=== PATIENT | female | born 1935 | race Two or more races ===

== ENCOUNTER 2018-09-16 09:35 | Inpatient (IN) | payer MEDICARE, OTHER ==
[2018-09-16] MEDS ORDERED: HYDROmorphONE 1 MG/ML SYG (10:00)
[2018-09-16] MEDS: HYDROmorphONE 1 MG/ML SYG IV (10:03)
[2018-09-16] MEDS: ONDANSETRON 4 MG INJ IV (10:03)
[2018-09-16 10:10] LABS: ADD MAN DIFF? NO
[2018-09-16 10:13] LABS: WHITE BLOOD COUNT 9.2 10^3/ul (4.8-10.8)
[2018-09-16 10:13] LABS: BASOPHIL # 0.1 10^3/ul (0.0-0.1); BASOPHILS % 0.8 % (0.0-2.0); EOSINOPHILS # 0.1 10^3/ul (0.0-0.5); EOSINOPHILS % 1.2 % (0.0-7.0); HEMATOCRIT 33.7 % (37.0-47.0); HEMOGLOBIN 11.1 g/dl (12.0-16.0); LYMPHOCYTES # 1.6 10^3/ul (0.8-2.9); LYMPHOCYTES % 17.1 % (15.0-51.0); MEAN CORPUSCULAR HEMOGLOBIN 29.8 pg (29.0-33.0); MEAN CORPUSCULAR HGB CONC 32.9 g/dl (32.0-37.0); MEAN CORPUSCULAR VOLUME 90.3 fl (82.0-101.0); MEAN PLATELET VOLUME 10.1 fl (7.4-10.4); MONOCYTE # 0.7 10^3/ul (0.3-0.9); MONOCYTES % 7.7 % (0.0-11.0); NEUTROPHIL # 6.7 10^3/ul (1.6-7.5); NEUTROPHILS % 72.7 % (39.0-77.0); PLATELET COUNT 251 10^3/UL (140-415); RED BLOOD COUNT 3.73 10^6/ul (4.20-5.40)
[2018-09-16 10:35] LABS: INR 0.94; PROTIME 12.7 Sec (11.9-14.9)
[2018-09-16 10:36] LABS: ANION GAP 9 (5-13); BLOOD UREA NITROGEN 38 mg/dl (7-20); CALCIUM 9.9 mg/dl (8.4-10.2); CARBON DIOXIDE 25 mmol/L (21-31); CHLORIDE 108 mmol/L (97-110); CREATININE 1.19 mg/dl (0.44-1.00); GLUCOSE 144 mg/dl (70-220); POTASSIUM 4.3 mmol/L (3.5-5.1); SODIUM 142 mmol/L (135-144)
[2018-09-16 10:48] LABS: TROPONIN-I < 0.012 ng/ml (0.000-0.120)
[2018-09-16] MEDS: HYDROmorphONE 0.5 MG/0.5 ML SYG IV (11:55)
[2018-09-16] MEDS ORDERED: NACL 0.9% 3 ML SYG IV (13:00)
[2018-09-16] MEDS ORDERED: ONDANSETRON 4 MG INJ IV (13:00)
[2018-09-16] MEDS ORDERED: DOCUSATE SODIUM 100 MG CAP PO (13:00)
[2018-09-16 14:40] LABS: CREATINE KINASE 166 IU/L (23-200)
[2018-09-16 14:53] LABS: CK INDEX 1.8; CK-MB 2.96 ng/ml (0.0-2.4); TROPONIN-I < 0.012 ng/ml (0.000-0.120)
[2018-09-16] MEDS: GABAPENTIN 300 MG CAP PO ×2 (16:18→20:40)
[2018-09-16] MEDS: morphine 2 MG INJ IV ×2 (16:19→19:37)
[2018-09-16] MEDS ORDERED: HEPARIN 5,000 UNIT/0.5 ML VIAL (20:37)
[2018-09-16] MEDS: DOCUSATE SODIUM 100 MG CAP PO (20:40)
[2018-09-16] MEDS: LUBIPROSTONE 24 MCG CAP PO (20:40)
[2018-09-16] MEDS: FAMOTIDINE 20 MG TAB PO (20:41)
[2018-09-16] MEDS: HEPARIN 5,000 UNIT/1 ML VIAL SC (20:41)
[2018-09-16 21:01] LABS: CREATINE KINASE 262 IU/L (23-200)
[2018-09-16 21:12] LABS: CK INDEX 1.6; CK-MB 4.32 ng/ml (0.0-2.4); TROPONIN-I < 0.012 ng/ml (0.000-0.120)
[2018-09-17] MEDS: morphine 2 MG INJ IV ×4 (02:48→23:50)
[2018-09-17] MEDS: ACETAMINOPHEN 325 MG TAB PO (05:05)
[2018-09-17 05:32] LABS: ADD MAN DIFF? NO
[2018-09-17 05:33] LABS: WHITE BLOOD COUNT 8.8 10^3/ul (4.8-10.8)
[2018-09-17 05:33] LABS: BASOPHILS % 0.5 % (0.0-2.0); EOSINOPHILS % 0.2 % (0.0-7.0); HEMATOCRIT 24.9 % (37.0-47.0); HEMOGLOBIN 8.2 g/dl (12.0-16.0); LYMPHOCYTES # 2.4 10^3/ul (0.8-2.9); LYMPHOCYTES % 27.3 % (15.0-51.0); MEAN CORPUSCULAR HEMOGLOBIN 29.9 pg (29.0-33.0); MEAN CORPUSCULAR HGB CONC 32.9 g/dl (32.0-37.0); MEAN CORPUSCULAR VOLUME 90.9 fl (82.0-101.0); MEAN PLATELET VOLUME 10.4 fl (7.4-10.4); MONOCYTE # 1.2 10^3/ul (0.3-0.9); MONOCYTES % 13.6 % (0.0-11.0); NEUTROPHIL # 5.1 10^3/ul (1.6-7.5); NEUTROPHILS % 57.9 % (39.0-77.0); PLATELET COUNT 237 10^3/UL (140-415); RED BLOOD COUNT 2.74 10^6/ul (4.20-5.40); RED CELL DISTRIBUTION WIDTH 13.3 % (11.5-14.5)
[2018-09-17 06:03] LABS: HEMOGLOBIN A1C 5.8 % (0-5.9)
[2018-09-17 06:29] LABS: ALANINE AMINOTRANSFERASE 23 IU/L (13-69); ALBUMIN 3.2 g/dl (3.3-4.9); ALBUMIN/GLOBULIN RATIO 1.18; ALKALINE PHOSPHATASE 67 IU/L (42-121); ANION GAP 12 (5-13); ASPARTATE AMINO TRANSFERASE 20 IU/L (15-46); BILIRUBIN,INDIRECT 0.7 mg/dl (0-1.1); BILIRUBIN,TOTAL 0.7 mg/dl (0.2-1.3); BLOOD UREA NITROGEN 55 mg/dl (7-20); CALCIUM 8.5 mg/dl (8.4-10.2); CARBON DIOXIDE 23 mmol/L (21-31); CHLORIDE 104 mmol/L (97-110); CHOL/HDL RATIO 4.5 RATIO; CHOLESTEROL 133 mg/dl (100-200); CREATININE 2.81 mg/dl (0.44-1.00); GLUCOSE 128 mg/dl (70-220); HDL CHOLESTEROL 29 mg/dl (33-92); LDL CHOLESTEROL,CALCULATED 73 mg/dl; MAGNESIUM 1.9 mg/dl (1.7-2.5); SODIUM 139 mmol/L (135-144); TOTAL PROTEIN 5.9 g/dl (6.1-8.1); TRIGLYCERIDES 153 mg/dl (0-149)
[2018-09-17] MEDS: SOD CHLORIDE 0.9% 1,000 ML IV (07:20)
[2018-09-17] MEDS: GABAPENTIN 300 MG CAP PO ×3 (08:51→22:00)
[2018-09-17] MEDS: LUBIPROSTONE 24 MCG CAP PO ×2 (08:51→22:09)
[2018-09-17] MEDS: DOCUSATE SODIUM 100 MG CAP PO ×2 (08:51→22:00)
[2018-09-17] MEDS: METOPROLOL 25 MG TAB PO ×2 (08:52→22:03)
[2018-09-17] MEDS: PANTOPRAZOLE (EC) 40 MG TAB PO (08:53)
[2018-09-17] MEDS: POTASSIUM CHLORIDE (SR) 20 MEQ TAB PO (08:54)
[2018-09-17] MEDS ORDERED: CELECOXIB 200 MG CAP PO (09:00)
[2018-09-17] MEDS ORDERED: FUROSEMIDE 40 MG TAB PO (09:00)
[2018-09-17] MEDS: HEPARIN 5,000 UNIT/1 ML VIAL SC ×3 (09:00→21:00)
[2018-09-17] MEDS: SOD CHLORIDE 0.9% 500 ML IV (11:00)
[2018-09-17] MEDS: LACTATED RINGER'S 500 ML IV ×2 (12:45)
[2018-09-17 12:55] LABS: ADD UMIC YES; UR ASCORBIC ACID NEGATIVE (NEGATIVE); UR BACTERIA MODERATE /HPF (NONE SEEN); UR BILIRUBIN (Dip) 1+ mg/dL (NEGATIVE); UR BLOOD (Dip) 1+ mg/dL (NEGATIVE); UR CLARITY CLOUDY (CLEAR); UR COLOR AMBER (YELLOW); UR GLUCOSE (Dip) NEGATIVE (NEGATIVE); UR GRANULAR CAST MODERATE /HPF (NONE SEEN); UR HYALINE CAST FEW /HPF (NONE SEEN); UR KETONES (Dip) NEGATIVE (NEGATIVE); UR LEUKOCYTE ESTERASE (Dip) 2+ Leu/ul (NEGATIVE); UR MUCUS FEW /HPF (NONE SEEN); UR NITRITE (Dip) NEGATIVE (NEGATIVE); UR RBC 70 /HPF (0-5); UR SPECIFIC GRAVITY (Dip) 1.018 (1.003-1.030); UR SQUAMOUS EPITHELIAL CELL FEW /HPF (FEW); UR TOTAL PROTEIN (Dip) NEGATIVE (NEGATIVE); UR UROBILINOGEN (Dip) 1+ mg/dL (NEGATIVE); UR WBC 29 /HPF (0-5)
[2018-09-17 13:35] LABS: ANION GAP 8 (5-13); BLOOD UREA NITROGEN 57 mg/dl (7-20); CALCIUM 8.1 mg/dl (8.4-10.2); CARBON DIOXIDE 24 mmol/L (21-31); CHLORIDE 105 mmol/L (97-110); CREATININE 2.98 mg/dl (0.44-1.00); GLUCOSE 118 mg/dl (70-220); POTASSIUM 4.9 mmol/L (3.5-5.1); SODIUM 137 mmol/L (135-144)
[2018-09-17] MEDS ORDERED: HEPARIN 5,000 UNIT/0.5 ML VIAL ×2 (15:27→19:57)
[2018-09-17] MEDS ORDERED: ATORVASTATIN 10 MG TAB PO (21:00)
[2018-09-17 21:17] LABS: SODIUM,URINE RANDOM 22 mmol/L (30-90)
[2018-09-17] MEDS: FOSFOMYCIN 3 GM PACKET PO (21:59)
[2018-09-17] MEDS: FAMOTIDINE 20 MG TAB PO (22:00)
[2018-09-17] MEDS: ATORVASTATIN 40 MG TAB PO (22:03)
[2018-09-18 02:36] LABS: IMMEDIATE SPIN CROSSMATCH 1 2
[2018-09-18] MEDS: PANTOPRAZOLE (EC) 40 MG TAB PO (05:37)
[2018-09-18] MEDS: SOD CHLORIDE 0.9% 1,000 ML IV ×2 (06:17→19:30)
[2018-09-18] MEDS ORDERED: EPHEDrine SULFATE 50 MG/5 ML SYG (07:00)
[2018-09-18] MEDS: LUBIPROSTONE 24 MCG CAP PO ×2 (09:00→20:12)
[2018-09-18] MEDS: POTASSIUM CHLORIDE (SR) 20 MEQ TAB PO (09:00)
[2018-09-18] MEDS: GABAPENTIN 300 MG CAP PO ×3 (09:00→20:12)
[2018-09-18] MEDS: HEPARIN 5,000 UNIT/1 ML VIAL SC ×2 (09:00→20:19)
[2018-09-18] MEDS: DOCUSATE SODIUM 100 MG CAP PO ×2 (09:00→20:13)
[2018-09-18 10:41] LABS: ADD MAN DIFF? NO
[2018-09-18 10:51] LABS: WHITE BLOOD COUNT 8.5 10^3/ul (4.8-10.8)
[2018-09-18 10:51] LABS: BASOPHILS % 0.2 % (0.0-2.0); EOSINOPHILS # 0.1 10^3/ul (0.0-0.5); EOSINOPHILS % 0.8 % (0.0-7.0); HEMATOCRIT 25.9 % (37.0-47.0); HEMOGLOBIN 8.5 g/dl (12.0-16.0); LYMPHOCYTES # 1.6 10^3/ul (0.8-2.9); LYMPHOCYTES % 18.7 % (15.0-51.0); MEAN CORPUSCULAR HEMOGLOBIN 30.4 pg (29.0-33.0); MEAN CORPUSCULAR HGB CONC 32.8 g/dl (32.0-37.0); MEAN CORPUSCULAR VOLUME 92.5 fl (82.0-101.0); MEAN PLATELET VOLUME 10.3 fl (7.4-10.4); MONOCYTE # 1.3 10^3/ul (0.3-0.9); MONOCYTES % 15.1 % (0.0-11.0); NEUTROPHIL # 5.5 10^3/ul (1.6-7.5); NEUTROPHILS % 64.4 % (39.0-77.0); PLATELET COUNT 150 10^3/UL (140-415); RED CELL DISTRIBUTION WIDTH 13.2 % (11.5-14.5)
[2018-09-18] MEDS: METOPROLOL 25 MG TAB PO ×2 (11:04→20:13)
[2018-09-18 11:16] LABS: ALANINE AMINOTRANSFERASE 21 IU/L (13-69); ALBUMIN 3.1 g/dl (3.3-4.9); ALBUMIN/GLOBULIN RATIO 1.19; ALKALINE PHOSPHATASE 66 IU/L (42-121); ANION GAP 7 (5-13); ASPARTATE AMINO TRANSFERASE 27 IU/L (15-46); BILIRUBIN,INDIRECT 0.9 mg/dl (0-1.1); BILIRUBIN,TOTAL 0.9 mg/dl (0.2-1.3); BLOOD UREA NITROGEN 46 mg/dl (7-20); CALCIUM 8.7 mg/dl (8.4-10.2); CARBON DIOXIDE 26 mmol/L (21-31); CHLORIDE 110 mmol/L (97-110); CREATININE 1.48 mg/dl (0.44-1.00); GLUCOSE 120 mg/dl (70-220); POTASSIUM 4.4 mmol/L (3.5-5.1); SODIUM 143 mmol/L (135-144); TOTAL PROTEIN 5.7 g/dl (6.1-8.1)
[2018-09-18 11:16] LABS: MAGNESIUM 2.1 mg/dl (1.7-2.5)
[2018-09-18] MEDS: morphine 2 MG INJ IV ×2 (11:47→23:45)
[2018-09-18] MEDS ORDERED: ONDANSETRON 4 MG INJ (13:23)
[2018-09-18] MEDS ORDERED: METOCLOPRAMIDE 10 MG INJ (13:23)
[2018-09-18] MEDS ORDERED: PROPOFOL 20 ML (13:23)
[2018-09-18] MEDS ORDERED: FENTAnyl 50 MCG/ML VIAL ×2 (13:23→13:55)
[2018-09-18] MEDS ORDERED: CEFAZOLIN 1 GM INJ (13:23)
[2018-09-18] MEDS ORDERED: DIPHENHYDRAMINE 50 MG INJ IV (13:30)
[2018-09-18] MEDS ORDERED: LABETALOL HCL 20MG INJ IV (13:30)
[2018-09-18] MEDS ORDERED: MEPERIDINE 25 MG INJ IV (13:30)
[2018-09-18] MEDS ORDERED: hydrALAzine 20 MG INJ IV (13:30)
[2018-09-18] MEDS ORDERED: HYDROmorphONE 1 MG/5 ML IV SYRINGE IV ×3 (13:30)
[2018-09-18] MEDS ORDERED: ONDANSETRON 4 MG INJ IV (13:30)
[2018-09-18] MEDS ORDERED: ROPIVACAINE 0.5 % 30 ML VIAL (13:36)
[2018-09-18] MEDS ORDERED: POLYMYXIN/BACITRACIN 1L IRRIG (17:52)
[2018-09-18] MEDS ORDERED: HYDROCODONE/APAP (5/325) TAB PO (19:00)
[2018-09-18] MEDS ORDERED: NACL 0.9% 3 ML SYG IV (19:00)
[2018-09-18] MEDS ORDERED: morphine 4 MG/ML VIAL IV (19:00)
[2018-09-18] MEDS ORDERED: CEFAZOLIN 2 GM/50 ML (PMX) 50 ML IVPB (19:00)
[2018-09-18 19:07] LABS: ADD MAN DIFF? NO
[2018-09-18 19:09] LABS: WHITE BLOOD COUNT 8.1 10^3/ul (4.8-10.8)
[2018-09-18 19:09] LABS: BASOPHILS % 0.2 % (0.0-2.0); EOSINOPHILS % 0.2 % (0.0-7.0); HEMATOCRIT 25.3 % (37.0-47.0); HEMOGLOBIN 8.2 g/dl (12.0-16.0); LYMPHOCYTES # 1.4 10^3/ul (0.8-2.9); LYMPHOCYTES % 17.4 % (15.0-51.0); MEAN CORPUSCULAR HEMOGLOBIN 30.1 pg (29.0-33.0); MEAN CORPUSCULAR HGB CONC 32.4 g/dl (32.0-37.0); MONOCYTE # 1.1 10^3/ul (0.3-0.9); MONOCYTES % 13.2 % (0.0-11.0); NEUTROPHIL # 5.5 10^3/ul (1.6-7.5); NEUTROPHILS % 68.1 % (39.0-77.0); PLATELET COUNT 141 10^3/UL (140-415); RED BLOOD COUNT 2.72 10^6/ul (4.20-5.40); RED CELL DISTRIBUTION WIDTH 13.1 % (11.5-14.5)
[2018-09-18 19:33] LABS: ANION GAP 6 (5-13); BLOOD UREA NITROGEN 37 mg/dl (7-20); CALCIUM 8.5 mg/dl (8.4-10.2); CARBON DIOXIDE 26 mmol/L (21-31); CHLORIDE 110 mmol/L (97-110); CREATININE 1.15 mg/dl (0.44-1.00); GLUCOSE 127 mg/dl (70-220); POTASSIUM 4.3 mmol/L (3.5-5.1); SODIUM 142 mmol/L (135-144)
[2018-09-18] MEDS ORDERED: HEPARIN 5,000 UNIT/0.5 ML VIAL (20:05)
[2018-09-18] MEDS: FAMOTIDINE 20 MG TAB PO (20:12)
[2018-09-18] MEDS: ATORVASTATIN 40 MG TAB PO (20:12)
[2018-09-18] MEDS: morphine 4 MG/ML VIAL IV (23:44)
[2018-09-19] MEDS: SOD CHLORIDE 0.9% 1,000 ML IV ×2 (02:33→04:00)
[2018-09-19] MEDS: HYDROCODONE/APAP (5/325) TAB PO ×3 (02:35→19:09)
[2018-09-19] MEDS: PANTOPRAZOLE (EC) 40 MG TAB PO (05:07)
[2018-09-19] MEDS ORDERED: HEPARIN 5,000 UNIT/0.5 ML VIAL ×2 (08:36→20:20)
[2018-09-19] MEDS: LUBIPROSTONE 24 MCG CAP PO ×2 (08:47→20:58)
[2018-09-19] MEDS: GABAPENTIN 300 MG CAP PO ×3 (08:47→20:59)
[2018-09-19] MEDS: DOCUSATE SODIUM 100 MG CAP PO ×2 (08:47→20:59)
[2018-09-19] MEDS: POTASSIUM CHLORIDE (SR) 20 MEQ TAB PO (08:48)
[2018-09-19] MEDS: METOPROLOL 25 MG TAB PO ×2 (08:50→20:59)
[2018-09-19] MEDS ORDERED: ERGOCALCIFEROL 50,000 UNIT CAP PO (09:00)
[2018-09-19] MEDS ORDERED: ENOXAPARIN 40 MG/0.4 ML SYG SC (09:00)
[2018-09-19] MEDS: HEPARIN 5,000 UNIT/1 ML VIAL SC ×2 (09:20→21:02)
[2018-09-19] MEDS: FAMOTIDINE 20 MG TAB PO (20:59)
[2018-09-19] MEDS: morphine 2 MG INJ IV (20:59)
[2018-09-19] MEDS: ATORVASTATIN 40 MG TAB PO (21:00)
[2018-09-19] MEDS: ZOLPIDEM 5 MG TAB PO (21:00)
[2018-09-20] MEDS: PANTOPRAZOLE (EC) 40 MG TAB PO (05:12)
[2018-09-20 05:37] LABS: ADD MAN DIFF? NO
[2018-09-20 05:46] LABS: BASOPHILS % 0.3 % (0.0-2.0); EOSINOPHILS # 0.3 10^3/ul (0.0-0.5); EOSINOPHILS % 3.8 % (0.0-7.0); HEMATOCRIT 23.2 % (37.0-47.0); HEMOGLOBIN 7.6 g/dl (12.0-16.0); LYMPHOCYTES # 1.5 10^3/ul (0.8-2.9); LYMPHOCYTES % 21.3 % (15.0-51.0); MEAN CORPUSCULAR HEMOGLOBIN 30.6 pg (29.0-33.0); MEAN CORPUSCULAR HGB CONC 32.8 g/dl (32.0-37.0); MEAN CORPUSCULAR VOLUME 93.5 fl (82.0-101.0); MEAN PLATELET VOLUME 10.6 fl (7.4-10.4); MONOCYTE # 0.9 10^3/ul (0.3-0.9); MONOCYTES % 12.7 % (0.0-11.0); NEUTROPHIL # 4.3 10^3/ul (1.6-7.5); PLATELET COUNT 176 10^3/UL (140-415); RED BLOOD COUNT 2.48 10^6/ul (4.20-5.40); RED CELL DISTRIBUTION WIDTH 13.3 % (11.5-14.5)
[2018-09-20 05:57] LABS: ANION GAP 8 (5-13); BLOOD UREA NITROGEN 23 mg/dl (7-20); CALCIUM 8.4 mg/dl (8.4-10.2); CARBON DIOXIDE 25 mmol/L (21-31); CHLORIDE 109 mmol/L (97-110); CREATININE 0.81 mg/dl (0.44-1.00); GLUCOSE 103 mg/dl (70-220); POTASSIUM 4.9 mmol/L (3.5-5.1); SODIUM 142 mmol/L (135-144)
[2018-09-20 06:06] LABS: IRON 15 ug/dl (35-150)
[2018-09-20 06:16] LABS: % IRON SATURATION 7 % SAT (22-52); TOTAL IRON BINDING CAPACITY 221 ug/dl (241-421)
[2018-09-20 06:29] LABS: FERRITIN 85.7 ng/ml (11.1-264.0)
[2018-09-20] MEDS ORDERED: HEPARIN 5,000 UNIT/0.5 ML VIAL ×2 (08:22→21:34)
[2018-09-20] MEDS: [UNRECOGNIZED DRUG - OTHER] XX ×2 (08:30→16:30)
[2018-09-20] MEDS: DOCUSATE SODIUM 100 MG CAP PO ×3 (09:35→21:54)
[2018-09-20] MEDS: METOPROLOL 25 MG TAB PO ×2 (09:35→21:55)
[2018-09-20] MEDS: HYDROCODONE/APAP (5/325) TAB PO ×3 (09:35→22:37)
[2018-09-20] MEDS: LUBIPROSTONE 24 MCG CAP PO ×2 (09:35→21:54)
[2018-09-20] MEDS: POTASSIUM CHLORIDE (SR) 20 MEQ TAB PO (09:35)
[2018-09-20] MEDS: HEPARIN 5,000 UNIT/1 ML VIAL SC ×2 (09:43→21:56)
[2018-09-20] MEDS: GABAPENTIN 300 MG CAP PO ×3 (09:43→21:55)
[2018-09-20] MEDS: POLYETHYLENE GLYCOL 17 GM PACKET PO ×2 (13:21→21:54)
[2018-09-20] MEDS: predniSONE 20 MG TAB PO (13:21)
[2018-09-20] MEDS: ALBUTEROL/IPRATROPIUM (NEB) 3 ML AMP HHN ×3 (15:59→21:14)
[2018-09-20] MEDS: SOD FERRIC GLUC COMPLX 125 MG in SOD CHLORIDE 0.9% 100 ML IVPB (17:20)
[2018-09-20] MEDS: BISACODYL (EC) 5 MG TAB PO (18:04)
[2018-09-20] MEDS: BUDESONIDE (NEB) 0.25 MG/2 ML AMP HHN (20:00)
[2018-09-20] MEDS: FAMOTIDINE 20 MG TAB PO (21:55)
[2018-09-20] MEDS: ATORVASTATIN 40 MG TAB PO (21:55)
[2018-09-20] MEDS: morphine 2 MG INJ IV (23:31)
[2018-09-21] MEDS: [UNRECOGNIZED DRUG - OTHER] XX ×3 (00:30→16:30)
[2018-09-21] MEDS: ALBUTEROL/IPRATROPIUM (NEB) 3 ML AMP HHN ×6 (00:52→20:45)
[2018-09-21] MEDS: morphine 2 MG INJ IV ×2 (04:11→15:03)
[2018-09-21 05:35] LABS: ADD MAN DIFF? NO
[2018-09-21 05:48] LABS: WHITE BLOOD COUNT 7.3 10^3/ul (4.8-10.8)
[2018-09-21 05:48] LABS: HEMATOCRIT 23.6 % (37.0-47.0); HEMOGLOBIN 7.8 g/dl (12.0-16.0); LYMPHOCYTES # 0.8 10^3/ul (0.8-2.9); LYMPHOCYTES % 10.6 % (15.0-51.0); MEAN CORPUSCULAR HGB CONC 33.1 g/dl (32.0-37.0); MEAN CORPUSCULAR VOLUME 90.8 fl (82.0-101.0); MEAN PLATELET VOLUME 10.9 fl (7.4-10.4); MONOCYTE # 0.8 10^3/ul (0.3-0.9); MONOCYTES % 10.5 % (0.0-11.0); NEUTROPHIL # 5.7 10^3/ul (1.6-7.5); NEUTROPHILS % 77.8 % (39.0-77.0); PLATELET COUNT 207 10^3/UL (140-415)
[2018-09-21 06:00] LABS: ANION GAP 7 (5-13); BLOOD UREA NITROGEN 25 mg/dl (7-20); CALCIUM 9.1 mg/dl (8.4-10.2); CARBON DIOXIDE 25 mmol/L (21-31); CHLORIDE 105 mmol/L (97-110); CREATININE 0.83 mg/dl (0.44-1.00); GLUCOSE 149 mg/dl (70-220); POTASSIUM 4.8 mmol/L (3.5-5.1); SODIUM 137 mmol/L (135-144)
[2018-09-21] MEDS: PANTOPRAZOLE (EC) 40 MG TAB PO (06:57)
[2018-09-21] MEDS: BUDESONIDE (NEB) 0.25 MG/2 ML AMP HHN ×2 (08:03→20:48)
[2018-09-21] MEDS ORDERED: HEPARIN 5,000 UNIT/0.5 ML VIAL ×2 (08:40→20:31)
[2018-09-21] MEDS: POTASSIUM CHLORIDE (SR) 20 MEQ TAB PO (09:21)
[2018-09-21] MEDS: predniSONE 20 MG TAB PO (09:21)
[2018-09-21] MEDS: DOCUSATE SODIUM 100 MG CAP PO ×2 (09:21→21:27)
[2018-09-21] MEDS: LUBIPROSTONE 24 MCG CAP PO ×2 (09:21→21:26)
[2018-09-21] MEDS: GABAPENTIN 300 MG CAP PO ×3 (09:21→21:26)
[2018-09-21] MEDS: METOPROLOL 25 MG TAB PO ×2 (09:23→21:27)
[2018-09-21] MEDS: HEPARIN 5,000 UNIT/1 ML VIAL SC ×2 (09:24→21:54)
[2018-09-21] MEDS: NA PHOSPHATE/BIPHOS 133 ML ENEMA PR (15:04)
[2018-09-21] MEDS: SOD CHLORIDE 0.9% 250 ML IV* (16:35)
[2018-09-21] MEDS ORDERED: morphine LIQ (10 MG/5 ML) CUP PO (19:00)
[2018-09-21] MEDS: ATORVASTATIN 40 MG TAB PO (21:26)
[2018-09-21] MEDS: FAMOTIDINE 20 MG TAB PO (21:27)
[2018-09-21] MEDS: SOD FERRIC GLUC COMPLX 125 MG in SOD CHLORIDE 0.9% 100 ML IVPB (21:28)
[2018-09-21] MEDS: FUROSEMIDE 20 MG INJ IV (21:31)
[2018-09-21 23:47] LABS: IMMEDIATE SPIN CROSSMATCH 1 6
[2018-09-22] MEDS: [UNRECOGNIZED DRUG - OTHER] XX ×3 (00:30→16:30)
[2018-09-22] MEDS: ALBUTEROL/IPRATROPIUM (NEB) 3 ML AMP HHN ×6 (01:38→20:19)
[2018-09-22 05:08] LABS: ADD MAN DIFF? NO
[2018-09-22 05:24] LABS: WHITE BLOOD COUNT 9.2 10^3/ul (4.8-10.8)
[2018-09-22 05:24] LABS: BASOPHILS % 0.2 % (0.0-2.0); EOSINOPHILS % 0.2 % (0.0-7.0); HEMATOCRIT 29.7 % (37.0-47.0); LYMPHOCYTES # 1.6 10^3/ul (0.8-2.9); MEAN CORPUSCULAR HEMOGLOBIN 30.1 pg (29.0-33.0); MEAN CORPUSCULAR HGB CONC 33.7 g/dl (32.0-37.0); MEAN CORPUSCULAR VOLUME 89.5 fl (82.0-101.0); MEAN PLATELET VOLUME 10.7 fl (7.4-10.4); MONOCYTE # 1.2 10^3/ul (0.3-0.9); MONOCYTES % 13.3 % (0.0-11.0); NEUTROPHIL # 6.2 10^3/ul (1.6-7.5); NEUTROPHILS % 68.2 % (39.0-77.0); PLATELET COUNT 213 10^3/UL (140-415); RED BLOOD COUNT 3.32 10^6/ul (4.20-5.40); RED CELL DISTRIBUTION WIDTH 13.7 % (11.5-14.5)
[2018-09-22 05:35] LABS: ANION GAP 6 (5-13); BLOOD UREA NITROGEN 26 mg/dl (7-20); CALCIUM 8.7 mg/dl (8.4-10.2); CARBON DIOXIDE 27 mmol/L (21-31); CHLORIDE 107 mmol/L (97-110); CREATININE 0.76 mg/dl (0.44-1.00); GLUCOSE 115 mg/dl (70-220); POTASSIUM 4.4 mmol/L (3.5-5.1); SODIUM 140 mmol/L (135-144)
[2018-09-22 05:40] LABS: INR 0.98; PROTIME 13.1 Sec (11.9-14.9)
[2018-09-22] MEDS: PANTOPRAZOLE (EC) 40 MG TAB PO (06:00)
[2018-09-22] MEDS: BUDESONIDE (NEB) 0.25 MG/2 ML AMP HHN ×2 (08:29→20:30)
[2018-09-22] MEDS: GABAPENTIN 300 MG CAP PO ×3 (08:45→21:49)
[2018-09-22] MEDS: predniSONE 20 MG TAB PO (08:45)
[2018-09-22] MEDS: METOPROLOL 25 MG TAB PO ×2 (08:46→21:55)
[2018-09-22] MEDS: DOCUSATE SODIUM 100 MG CAP PO ×2 (09:00→21:00)
[2018-09-22] MEDS: LUBIPROSTONE 24 MCG CAP PO ×2 (09:00→21:49)
[2018-09-22] MEDS: POTASSIUM CHLORIDE (SR) 20 MEQ TAB PO (09:00)
[2018-09-22] MEDS: POLYETHYLENE GLYCOL 17 GM PACKET PO (09:00)
[2018-09-22] MEDS: HEPARIN 5,000 UNIT/1 ML VIAL SC ×2 (09:00→21:52)
[2018-09-22] MEDS: hydrALAzine 20 MG INJ IV (10:30)
[2018-09-22] MEDS: FUROSEMIDE 20 MG INJ IV (11:55)
[2018-09-22] MEDS: BISACODYL 10 MG SUPP PR (14:07)
[2018-09-22 14:49] LABS: ADD MAN DIFF? NO
[2018-09-22 14:51] LABS: BASOPHILS % 0.1 % (0.0-2.0); HEMATOCRIT 37.4 % (37.0-47.0); HEMOGLOBIN 12.6 g/dl (12.0-16.0); LYMPHOCYTES # 0.6 10^3/ul (0.8-2.9); LYMPHOCYTES % 6.7 % (15.0-51.0); MEAN CORPUSCULAR HEMOGLOBIN 29.9 pg (29.0-33.0); MEAN CORPUSCULAR HGB CONC 33.7 g/dl (32.0-37.0); MEAN CORPUSCULAR VOLUME 88.6 fl (82.0-101.0); MEAN PLATELET VOLUME 10.2 fl (7.4-10.4); MONOCYTE # 0.6 10^3/ul (0.3-0.9); MONOCYTES % 6.5 % (0.0-11.0); NEUTROPHIL # 7.8 10^3/ul (1.6-7.5); PLATELET COUNT 228 10^3/UL (140-415); RED BLOOD COUNT 4.22 10^6/ul (4.20-5.40); RED CELL DISTRIBUTION WIDTH 14.2 % (11.5-14.5)
[2018-09-22 14:51] LABS: WHITE BLOOD COUNT 9.2 10^3/ul (4.8-10.8)
[2018-09-22] MEDS ORDERED: VANCOMYCIN IV PER PHARMACY XX (15:30)
[2018-09-22] MEDS: CEFEPIME 1GM/50 ML (PMX) 50 ML IVPB ×2 (16:18→21:54)
[2018-09-22] MEDS: NA PHOSPHATE/BIPHOS 133 ML ENEMA PR (17:09)
[2018-09-22] MEDS: SOD FERRIC GLUC COMPLX 125 MG in SOD CHLORIDE 0.9% 100 ML IVPB (17:17)
[2018-09-22] MEDS: VANCOMYCIN 1.5 GM in SOD CHLORIDE 0.9% 250 ML IVPB (18:53)
[2018-09-22 19:35] LABS: AADO2 Arterial 38.7 mmHg (7.0-24.0); Allen Test ACCEPTAB; Arterial Base Excess 2.2 mmol/L (-3.0-3); Arterial Blood Gas Oxygen Sat 95.3 mmHG (95.0-100.0); Arterial COHb 0.1 % (0.0-3.0); Arterial Fraction of Oxyhgb 95.1 % (93.0-99.0); Arterial HCO3 24.3 mmol/L (22.0-26.0); Arterial MetHb 0.1 % (0.0-1.5); Arterial pCO2 30.4 mmhg (35-45); MODE ROOM AIR; Site Right Radial
[2018-09-22] MEDS: morphine 2 MG INJ IV (19:59)
[2018-09-22] MEDS ORDERED: HEPARIN 5,000 UNIT/0.5 ML VIAL (21:17)
[2018-09-22] MEDS: ATORVASTATIN 40 MG TAB PO (21:49)
[2018-09-22] MEDS: FAMOTIDINE 20 MG TAB PO (21:49)
[2018-09-22] MEDS: HYDROCODONE/APAP (5/325) TAB PO (21:51)
[2018-09-23] MEDS: morphine 2 MG INJ IV ×2 (00:12→09:52)
[2018-09-23] MEDS: ALBUTEROL/IPRATROPIUM (NEB) 3 ML AMP HHN ×6 (01:26→20:19)
[2018-09-23 05:39] LABS: ADD MAN DIFF? NO
[2018-09-23 05:46] LABS: WHITE BLOOD COUNT 9.6 10^3/ul (4.8-10.8)
[2018-09-23 05:46] LABS: BASOPHILS % 0.3 % (0.0-2.0); EOSINOPHILS # 0.1 10^3/ul (0.0-0.5); EOSINOPHILS % 0.9 % (0.0-7.0); HEMATOCRIT 36.1 % (37.0-47.0); HEMOGLOBIN 11.8 g/dl (12.0-16.0); LYMPHOCYTES # 1.9 10^3/ul (0.8-2.9); LYMPHOCYTES % 19.4 % (15.0-51.0); MEAN CORPUSCULAR HEMOGLOBIN 29.7 pg (29.0-33.0); MEAN CORPUSCULAR HGB CONC 32.7 g/dl (32.0-37.0); MEAN CORPUSCULAR VOLUME 90.9 fl (82.0-101.0); MEAN PLATELET VOLUME 10.4 fl (7.4-10.4); MONOCYTE # 1.3 10^3/ul (0.3-0.9); MONOCYTES % 13.2 % (0.0-11.0); NEUTROPHIL # 6.2 10^3/ul (1.6-7.5); NEUTROPHILS % 64.6 % (39.0-77.0); PLATELET COUNT 240 10^3/UL (140-415); RED BLOOD COUNT 3.97 10^6/ul (4.20-5.40); RED CELL DISTRIBUTION WIDTH 14.4 % (11.5-14.5)
[2018-09-23] MEDS: PANTOPRAZOLE (EC) 40 MG TAB PO (06:04)
[2018-09-23 06:21] LABS: ANION GAP 9 (5-13); BLOOD UREA NITROGEN 34 mg/dl (7-20); CALCIUM 9.1 mg/dl (8.4-10.2); CARBON DIOXIDE 27 mmol/L (21-31); CHLORIDE 106 mmol/L (97-110); CREATININE 0.82 mg/dl (0.44-1.00); GLUCOSE 109 mg/dl (70-220); SODIUM 142 mmol/L (135-144)
[2018-09-23 06:26] LABS: POTASSIUM 4.2 mmol/L (3.5-5.1)
[2018-09-23] MEDS: LINACLOTIDE 145 MCG PO ×2 (07:20→17:25)
[2018-09-23] MEDS: [UNRECOGNIZED DRUG - OTHER] PO ×2 (07:20→17:25)
[2018-09-23] MEDS: BUDESONIDE (NEB) 0.25 MG/2 ML AMP HHN ×2 (09:00→20:19)
[2018-09-23] MEDS: DOCUSATE SODIUM 100 MG CAP PO ×2 (09:00→20:54)
[2018-09-23] MEDS: LUBIPROSTONE 24 MCG CAP PO ×2 (09:00→20:48)
[2018-09-23] MEDS ORDERED: HEPARIN 5,000 UNIT/0.5 ML VIAL ×2 (09:39→20:34)
[2018-09-23] MEDS: CEFEPIME 1GM/50 ML (PMX) 50 ML IVPB ×2 (09:44→20:52)
[2018-09-23] MEDS: predniSONE 20 MG TAB PO (09:46)
[2018-09-23] MEDS: METOPROLOL 25 MG TAB PO ×2 (09:46→20:51)
[2018-09-23] MEDS: POTASSIUM CHLORIDE (SR) 20 MEQ TAB PO (09:47)
[2018-09-23] MEDS: GABAPENTIN 300 MG CAP PO ×3 (09:47→20:52)
[2018-09-23] MEDS: HEPARIN 5,000 UNIT/1 ML VIAL SC ×2 (09:53→20:54)
[2018-09-23] MEDS: POLYETHYLENE GLYCOL 17 GM PACKET PO (13:50)
[2018-09-23 13:54] LABS: OCCULT BLOOD STOOL NEGATIVE (NEGATIVE)
[2018-09-23] MEDS: VANCOMYCIN 1 GM 250 ML IVPB (17:33)
[2018-09-23] MEDS: ATORVASTATIN 40 MG TAB PO (20:52)
[2018-09-23] MEDS: BENAZEPRIL 10 MG TAB PO (20:52)
[2018-09-23] MEDS: FAMOTIDINE 20 MG TAB PO (20:52)
[2018-09-24] MEDS: ALBUTEROL/IPRATROPIUM (NEB) 3 ML AMP HHN ×7 (01:00→21:00)
[2018-09-24 05:28] LABS: ADD MAN DIFF? NO
[2018-09-24 05:36] LABS: WHITE BLOOD COUNT 8.4 10^3/ul (4.8-10.8)
[2018-09-24 05:36] LABS: BASOPHILS % 0.2 % (0.0-2.0); EOSINOPHILS # 0.1 10^3/ul (0.0-0.5); HEMATOCRIT 34.9 % (37.0-47.0); HEMOGLOBIN 11.5 g/dl (12.0-16.0); LYMPHOCYTES # 1.7 10^3/ul (0.8-2.9); LYMPHOCYTES % 19.7 % (15.0-51.0); MEAN CORPUSCULAR HEMOGLOBIN 30.1 pg (29.0-33.0); MEAN CORPUSCULAR VOLUME 91.4 fl (82.0-101.0); MEAN PLATELET VOLUME 10.4 fl (7.4-10.4); MONOCYTES % 11.8 % (0.0-11.0); NEUTROPHIL # 5.5 10^3/ul (1.6-7.5); NEUTROPHILS % 65.7 % (39.0-77.0); PLATELET COUNT 221 10^3/UL (140-415); RED BLOOD COUNT 3.82 10^6/ul (4.20-5.40); RED CELL DISTRIBUTION WIDTH 14.6 % (11.5-14.5)
[2018-09-24] MEDS: PANTOPRAZOLE (EC) 40 MG TAB PO (06:00)
[2018-09-24 06:18] LABS: ANION GAP 8 (5-13); BLOOD UREA NITROGEN 31 mg/dl (7-20); CALCIUM 8.8 mg/dl (8.4-10.2); CARBON DIOXIDE 26 mmol/L (21-31); CHLORIDE 108 mmol/L (97-110); CREATININE 0.75 mg/dl (0.44-1.00); GLUCOSE 109 mg/dl (70-220); POTASSIUM 4.3 mmol/L (3.5-5.1); SODIUM 142 mmol/L (135-144)
[2018-09-24] MEDS ORDERED: ROCURONIUM 50 MG INJ (07:00)
[2018-09-24] MEDS: LINACLOTIDE 145 MCG PO ×2 (07:20→17:25)
[2018-09-24] MEDS: [UNRECOGNIZED DRUG - OTHER] PO ×2 (07:20→17:25)
[2018-09-24] MEDS: HEPARIN 5,000 UNIT/1 ML VIAL SC (09:00)
[2018-09-24] MEDS: POLYETHYLENE GLYCOL 17 GM PACKET PO (09:00)
[2018-09-24] MEDS: GABAPENTIN 300 MG CAP PO ×3 (09:00→21:00)
[2018-09-24] MEDS: predniSONE 20 MG TAB PO (09:00)
[2018-09-24] MEDS: DOCUSATE SODIUM 100 MG CAP PO ×2 (09:00→21:00)
[2018-09-24] MEDS: BUDESONIDE (NEB) 0.25 MG/2 ML AMP HHN ×2 (09:00→20:00)
[2018-09-24] MEDS: POTASSIUM CHLORIDE (SR) 20 MEQ TAB PO (09:00)
[2018-09-24] MEDS: LUBIPROSTONE 24 MCG CAP PO ×2 (09:00→21:00)
[2018-09-24] MEDS: CEFEPIME 1GM/50 ML (PMX) 50 ML IVPB (10:01)
[2018-09-24] MEDS: BENAZEPRIL 10 MG TAB PO ×2 (10:10→21:00)
[2018-09-24] MEDS: METOPROLOL 25 MG TAB PO ×2 (10:12→21:00)
[2018-09-24] MEDS ORDERED: MIDAZOLAM 1 MG/ML 2 ML INJ ×2 (15:54→23:20)
[2018-09-24] MEDS ORDERED: FENTAnyl 50 MCG/ML VIAL ×4 (15:54→23:19)
[2018-09-24] MEDS ORDERED: LIDOCAINE 2% (SDV) 5 ML INJ (15:55)
[2018-09-24] MEDS ORDERED: ETOMIDATE 20 MG INJ (15:55)
[2018-09-24] MEDS ORDERED: ONDANSETRON 4 MG INJ (15:55)
[2018-09-24] MEDS ORDERED: SUCCINYLCHOLINE CHLORIDE 100 MG/5 ML SYG IV (15:56)
[2018-09-24] MEDS ORDERED: CEFAZOLIN 1 GM INJ (15:56)
[2018-09-24] MEDS ORDERED: LEVALBUTEROL (NEB) 1.25 MG/0.5 ML AMP HHN (16:00)
[2018-09-24] MEDS ORDERED: DIPHENHYDRAMINE 50 MG INJ IV (16:00)
[2018-09-24] MEDS ORDERED: ONDANSETRON 4 MG INJ IV (16:00)
[2018-09-24] MEDS ORDERED: FENTAnyl 50 MCG/ML VIAL IV ×2 (16:00)
[2018-09-24] MEDS ORDERED: HYDROmorphONE 1 MG/5 ML IV SYRINGE IV ×2 (16:00)
[2018-09-24] MEDS ORDERED: IPRATROPIUM (NEB) 0.5 MG/2.5 ML AMP HHN (16:00)
[2018-09-24] MEDS ORDERED: LABETALOL HCL 20MG INJ IV (16:00)
[2018-09-24] MEDS ORDERED: hydrALAzine 20 MG INJ IV (16:00)
[2018-09-24] MEDS ORDERED: BUPIVACAINE 0.75%/DEXT (SPINAL) 2 ML INJ (18:22)
[2018-09-24] MEDS ORDERED: HYDROmorphONE 2 MG/ML SYG (18:47)
[2018-09-24] MEDS ORDERED: hydrALAzine 20 MG INJ (18:50)
[2018-09-24] MEDS ORDERED: ALBUMIN HUMAN 5% 500 ML (18:55)
[2018-09-24] MEDS ORDERED: ALBUMIN HUMAN 25% 200 ML (18:55)
[2018-09-24] MEDS ORDERED: METOPROLOL 5 MG INJ (19:50)
[2018-09-24] MEDS: POLYMYXIN/BACITRACIN 1L IRRIG IRR (19:51)
[2018-09-24] MEDS ORDERED: morphine SULFATE/PF (10 MG/10 ML) INJ (20:13)
[2018-09-24] MEDS ORDERED: CA CHLORIDE 10% 10 ML SYRINGE (20:46)
[2018-09-24] MEDS: FAMOTIDINE 20 MG TAB PO (21:00)
[2018-09-24] MEDS: ATORVASTATIN 40 MG TAB PO (21:00)
[2018-09-24] MEDS ORDERED: FUROSEMIDE 20 MG INJ (21:32)
[2018-09-24 21:39] LABS: IMMEDIATE SPIN CROSSMATCH 1 5
[2018-09-24] MEDS ORDERED: NACL 0.9% 3 ML SYG IV (22:00)
[2018-09-24] MEDS ORDERED: PROPOFOL 100 ML (22:04)
[2018-09-24] MEDS ORDERED: NA BICARBONATE 8.4% 50 ML SYG (22:08)
[2018-09-24] MEDS ORDERED: LABETALOL HCL 20MG INJ (23:21)
[2018-09-24] MEDS ORDERED: PHENYLephrine (100 MCG/ML) 5ML SYG (23:25)
[2018-09-25] MEDS ORDERED: NORepinephrine 8MG/250 ML (PMX 250 ML IV
[2018-09-25] MEDS ORDERED: HEPARIN 5,000 UNIT/0.5 ML VIAL ×2 (00:56→20:38)
[2018-09-25] MEDS: VANCOMYCIN 1 GM 250 ML IVPB (00:57)
[2018-09-25] MEDS: ALBUTEROL HFA 8 GM INHALER INH ×3 (01:00→07:40)
[2018-09-25] MEDS: IPRATROPIUM (HFA) 12.9 GM INHALER INH ×3 (01:00→07:39)
[2018-09-25] MEDS: HEPARIN 5,000 UNIT/1 ML VIAL SC ×3 (01:08→22:16)
[2018-09-25 01:26] LABS: ADD MAN DIFF? NO
[2018-09-25 01:29] LABS: WHITE BLOOD COUNT 9.6 10^3/ul (4.8-10.8)
[2018-09-25 01:29] LABS: BASOPHILS % 0.2 % (0.0-2.0); EOSINOPHILS # 0.2 10^3/ul (0.0-0.5); EOSINOPHILS % 2.2 % (0.0-7.0); HEMATOCRIT 26.6 % (37.0-47.0); HEMOGLOBIN 8.9 g/dl (12.0-16.0); LYMPHOCYTES # 1.6 10^3/ul (0.8-2.9); LYMPHOCYTES % 16.6 % (15.0-51.0); MEAN CORPUSCULAR HEMOGLOBIN 30.1 pg (29.0-33.0); MEAN CORPUSCULAR HGB CONC 33.5 g/dl (32.0-37.0); MEAN CORPUSCULAR VOLUME 89.9 fl (82.0-101.0); MEAN PLATELET VOLUME 10.8 fl (7.4-10.4); MONOCYTE # 0.6 10^3/ul (0.3-0.9); MONOCYTES % 6.7 % (0.0-11.0); NEUTROPHILS % 72.9 % (39.0-77.0); PLATELET COUNT 103 10^3/UL (140-415); RED BLOOD COUNT 2.96 10^6/ul (4.20-5.40); RED CELL DISTRIBUTION WIDTH 15.7 % (11.5-14.5)
[2018-09-25 01:33] LABS: AADO2 Arterial 142.7 mmHg (7.0-24.0); Arterial Base Excess -0.2 mmol/L (-3.0-3); Arterial Blood Gas Oxygen Sat 98.7 mmHG (95.0-100.0); Arterial COHb 0.1 % (0.0-3.0); Arterial Fraction of Oxyhgb 98.6 % (93.0-99.0); Arterial HCO3 25.5 mmol/L (22.0-26.0); Arterial MetHb 0 % (0.0-1.5); Arterial pCO2 46.1 mmhg (35-45); MODE VENT - AC; Site A-Line
[2018-09-25 01:55] LABS: ANION GAP 4 (5-13); BLOOD UREA NITROGEN 30 mg/dl (7-20); CALCIUM 10.1 mg/dl (8.4-10.2); CARBON DIOXIDE 28 mmol/L (21-31); CHLORIDE 109 mmol/L (97-110); CREATININE 0.82 mg/dl (0.44-1.00); GLUCOSE 121 mg/dl (70-220); SODIUM 141 mmol/L (135-144)
[2018-09-25] MEDS: CEFAZOLIN 1 GM/50 ML (PMX) 50 ML IVPB ×3 (02:01→22:18)
[2018-09-25] MEDS: PROPOFOL 100 ML IV (02:01)
[2018-09-25] MEDS: CEFEPIME 1GM/50 ML (PMX) 50 ML IVPB ×2 (02:01→09:57)
[2018-09-25 05:01] LABS: ADD MAN DIFF? NO
[2018-09-25 05:04] LABS: BASOPHIL # 0.1 10^3/ul (0.0-0.1); BASOPHILS % 0.5 % (0.0-2.0); EOSINOPHILS # 0.3 10^3/ul (0.0-0.5); EOSINOPHILS % 1.9 % (0.0-7.0); HEMATOCRIT 29.3 % (37.0-47.0); LYMPHOCYTES # 1.7 10^3/ul (0.8-2.9); LYMPHOCYTES % 12.5 % (15.0-51.0); MEAN CORPUSCULAR HGB CONC 34.1 g/dl (32.0-37.0); MEAN PLATELET VOLUME 10.5 fl (7.4-10.4); MONOCYTE # 1.4 10^3/ul (0.3-0.9); MONOCYTES % 10.7 % (0.0-11.0); NEUTROPHIL # 9.6 10^3/ul (1.6-7.5); NEUTROPHILS % 72.7 % (39.0-77.0); PLATELET COUNT 136 10^3/UL (140-415); RED BLOOD COUNT 3.33 10^6/ul (4.20-5.40); RED CELL DISTRIBUTION WIDTH 16.1 % (11.5-14.5)
[2018-09-25 05:04] LABS: WHITE BLOOD COUNT 13.3 10^3/ul (4.8-10.8)
[2018-09-25 05:39] LABS: ANION GAP 6 (5-13); BLOOD UREA NITROGEN 32 mg/dl (7-20); CALCIUM 9.7 mg/dl (8.4-10.2); CARBON DIOXIDE 25 mmol/L (21-31); CHLORIDE 112 mmol/L (97-110); CREATININE 0.86 mg/dl (0.44-1.00); GLUCOSE 111 mg/dl (70-220); MAGNESIUM 1.6 mg/dl (1.7-2.5); POTASSIUM 4.4 mmol/L (3.5-5.1); SODIUM 143 mmol/L (135-144)
[2018-09-25] MEDS: PANTOPRAZOLE 40 MG INJ IV (06:25)
[2018-09-25] MEDS: morphine 2 MG INJ IV ×3 (07:29→12:58)
[2018-09-25] MEDS: [UNRECOGNIZED DRUG - OTHER] PO ×2 (08:14→17:43)
[2018-09-25] MEDS: LINACLOTIDE 145 MCG PO ×2 (08:14→17:43)
[2018-09-25] MEDS: POLYETHYLENE GLYCOL 17 GM PACKET PO (09:00)
[2018-09-25] MEDS: BUDESONIDE (NEB) 0.25 MG/2 ML AMP HHN ×2 (09:00→20:52)
[2018-09-25] MEDS: ENOXAPARIN 40 MG/0.4 ML SYG SC (09:00)
[2018-09-25] MEDS ORDERED: BUDESONIDE (NEB) 0.5MG/2ML AMP (09:40)
[2018-09-25] MEDS: METOPROLOL 25 MG TAB PO ×2 (11:24→21:42)
[2018-09-25] MEDS: HYDROCODONE/APAP (5/325) TAB PO (11:24)
[2018-09-25] MEDS: predniSONE 20 MG TAB PO (11:26)
[2018-09-25] MEDS: LEVOFLOXACIN 500 MG TAB PO (11:26)
[2018-09-25] MEDS: BENAZEPRIL 10 MG TAB PO ×2 (11:27→21:41)
[2018-09-25] MEDS: DOCUSATE SODIUM 100 MG CAP PO ×2 (11:27→21:41)
[2018-09-25] MEDS: GABAPENTIN 300 MG CAP PO ×3 (11:27→21:41)
[2018-09-25] MEDS: LUBIPROSTONE 24 MCG CAP PO ×2 (11:28→21:41)
[2018-09-25] MEDS: POTASSIUM CHLORIDE (SR) 20 MEQ TAB PO (11:28)
[2018-09-25] MEDS: ALBUTEROL/IPRATROPIUM (NEB) 3 ML AMP HHN ×3 (13:16→20:52)
[2018-09-25] MEDS: OXYCODONE/ACETAMINOPHEN (5/325) TAB PO ×2 (16:02→20:13)
[2018-09-25] MEDS: FAMOTIDINE 20 MG TAB PO (21:41)
[2018-09-25] MEDS: ATORVASTATIN 40 MG TAB PO (21:41)
[2018-09-26] MEDS: ALBUTEROL/IPRATROPIUM (NEB) 3 ML AMP HHN ×6 (00:36→21:00)
[2018-09-26] MEDS ORDERED: VANCOMYCIN 1 GM 250 ML IVPB (01:00)
[2018-09-26 05:06] LABS: ADD MAN DIFF? NO
[2018-09-26 05:15] LABS: WHITE BLOOD COUNT 15.8 10^3/ul (4.8-10.8)
[2018-09-26 05:15] LABS: BASOPHILS % 0.1 % (0.0-2.0); EOSINOPHILS % 0.1 % (0.0-7.0); HEMATOCRIT 21.1 % (37.0-47.0); HEMOGLOBIN 7.2 g/dl (12.0-16.0); LYMPHOCYTES # 1.4 10^3/ul (0.8-2.9); LYMPHOCYTES % 8.9 % (15.0-51.0); MEAN CORPUSCULAR HGB CONC 34.1 g/dl (32.0-37.0); MEAN CORPUSCULAR VOLUME 87.9 fl (82.0-101.0); MEAN PLATELET VOLUME 11.1 fl (7.4-10.4); MONOCYTE # 1.4 10^3/ul (0.3-0.9); MONOCYTES % 8.9 % (0.0-11.0); NEUTROPHIL # 12.8 10^3/ul (1.6-7.5); NEUTROPHILS % 80.6 % (39.0-77.0); PLATELET COUNT 127 10^3/UL (140-415)
[2018-09-26] MEDS: LEVOFLOXACIN 250 MG TAB PO (05:49)
[2018-09-26] MEDS: PANTOPRAZOLE (EC) 40 MG TAB PO (05:49)
[2018-09-26] MEDS: OXYCODONE/ACETAMINOPHEN (5/325) TAB PO ×3 (06:09→23:40)
[2018-09-26 06:14] LABS: ANION GAP 7 (5-13); BLOOD UREA NITROGEN 38 mg/dl (7-20); CALCIUM 8.5 mg/dl (8.4-10.2); CARBON DIOXIDE 24 mmol/L (21-31); CHLORIDE 105 mmol/L (97-110); GLUCOSE 136 mg/dl (70-220); MAGNESIUM 1.8 mg/dl (1.7-2.5); SODIUM 136 mmol/L (135-144)
[2018-09-26 06:23] LABS: POTASSIUM 4.6 mmol/L (3.5-5.1)
[2018-09-26] MEDS ORDERED: HEPARIN 5,000 UNIT/0.5 ML VIAL (08:10)
[2018-09-26] MEDS: POTASSIUM CHLORIDE (SR) 20 MEQ TAB PO (08:31)
[2018-09-26] MEDS: DOCUSATE SODIUM 100 MG CAP PO ×2 (08:31→21:00)
[2018-09-26] MEDS: LUBIPROSTONE 24 MCG CAP PO ×2 (08:31→21:15)
[2018-09-26] MEDS: POLYETHYLENE GLYCOL 17 GM PACKET PO (08:31)
[2018-09-26] MEDS: METOPROLOL 25 MG TAB PO ×2 (08:32→21:15)
[2018-09-26] MEDS: BENAZEPRIL 10 MG TAB PO ×2 (08:32→21:15)
[2018-09-26] MEDS: GABAPENTIN 300 MG CAP PO ×3 (08:32→21:15)
[2018-09-26] MEDS: LINACLOTIDE 145 MCG PO ×2 (08:33→17:23)
[2018-09-26] MEDS: [UNRECOGNIZED DRUG - OTHER] PO ×2 (08:33→17:23)
[2018-09-26] MEDS: HEPARIN 5,000 UNIT/1 ML VIAL SC ×2 (08:37→21:00)
[2018-09-26] MEDS: BUDESONIDE (NEB) 0.25 MG/2 ML AMP HHN ×2 (09:00→21:19)
[2018-09-26] MEDS: ATORVASTATIN 40 MG TAB PO (21:15)
[2018-09-26] MEDS: FAMOTIDINE 20 MG TAB PO (21:15)
[2018-09-27] MEDS: ALBUTEROL/IPRATROPIUM (NEB) 3 ML AMP HHN ×6 (01:44→21:22)
[2018-09-27 05:14] LABS: ADD MAN DIFF? NO
[2018-09-27 05:16] LABS: BASOPHILS % 0.2 % (0.0-2.0); EOSINOPHILS # 0.2 10^3/ul (0.0-0.5); EOSINOPHILS % 1.6 % (0.0-7.0); HEMATOCRIT 23.3 % (37.0-47.0); LYMPHOCYTES # 1.9 10^3/ul (0.8-2.9); LYMPHOCYTES % 16.1 % (15.0-51.0); MEAN CORPUSCULAR HGB CONC 34.3 g/dl (32.0-37.0); MEAN CORPUSCULAR VOLUME 90.3 fl (82.0-101.0); MEAN PLATELET VOLUME 11.1 fl (7.4-10.4); MONOCYTE # 1.2 10^3/ul (0.3-0.9); MONOCYTES % 10.3 % (0.0-11.0); NEUTROPHIL # 8.4 10^3/ul (1.6-7.5); NEUTROPHILS % 70.4 % (39.0-77.0); PLATELET COUNT 143 10^3/UL (140-415); RED BLOOD COUNT 2.58 10^6/ul (4.20-5.40)
[2018-09-27 05:16] LABS: WHITE BLOOD COUNT 11.9 10^3/ul (4.8-10.8)
[2018-09-27 05:17] LABS: POSITIVE DIFF @See below
[2018-09-27] MEDS: LEVOFLOXACIN 250 MG TAB PO (05:55)
[2018-09-27] MEDS: PANTOPRAZOLE (EC) 40 MG TAB PO (05:55)
[2018-09-27 06:23] LABS: BLOOD UREA NITROGEN 29 mg/dl (7-20); CALCIUM 8.4 mg/dl (8.4-10.2); CARBON DIOXIDE 26 mmol/L (21-31); CREATININE 0.85 mg/dl (0.44-1.00); GLUCOSE 100 mg/dl (70-220)
[2018-09-27 07:09] LABS: ANION GAP 5 (5-13); CHLORIDE 104 mmol/L (97-110); POTASSIUM 4.3 mmol/L (3.5-5.1); SODIUM 135 mmol/L (135-144)
[2018-09-27] MEDS: DOCUSATE SODIUM 100 MG CAP PO ×2 (09:00→20:03)
[2018-09-27] MEDS: POLYETHYLENE GLYCOL 17 GM PACKET PO (09:00)
[2018-09-27] MEDS: BUDESONIDE (NEB) 0.25 MG/2 ML AMP HHN ×2 (09:00→20:00)
[2018-09-27] MEDS: LUBIPROSTONE 24 MCG CAP PO ×2 (09:00→20:03)
[2018-09-27] MEDS: GABAPENTIN 300 MG CAP PO ×3 (09:13→21:25)
[2018-09-27] MEDS: OXYCODONE/ACETAMINOPHEN (5/325) TAB PO ×3 (09:13→20:15)
[2018-09-27] MEDS: POTASSIUM CHLORIDE (SR) 20 MEQ TAB PO (09:14)
[2018-09-27] MEDS: LINACLOTIDE 145 MCG PO ×2 (09:14→17:54)
[2018-09-27] MEDS: BENAZEPRIL 10 MG TAB PO ×2 (09:14→21:25)
[2018-09-27] MEDS: METOPROLOL 25 MG TAB PO ×2 (09:14→21:25)
[2018-09-27] MEDS: [UNRECOGNIZED DRUG - OTHER] PO ×2 (09:14→17:54)
[2018-09-27 09:27] LABS: ANISOCYTOSIS 1+ (0-0); BAND NEUTROPHILS #M 0.2 10^3/ul (0.0-0.6); BAND NEUTROPHILS % (M) 2 % (0-4); BURR CELLS 1+ (0-0); EOSINOPHILS % (M) 3 % (0-7); LYMPHOCYTES #M 1.1 10^3/ul (0.8-2.9); LYMPHOCYTES % (M) 10 % (15-51); MONOCYTE #M 0.8 10^3/ul (0.3-0.9); MONOCYTES % (M) 7 % (0-11); PLATELET ESTIMATE NORMAL; POLYCHROMASIA 1+ (0-0); REACTIVE LYMPHOCYTES #M 0.4 10^3/ul (0.0-0.0); REACTIVE LYMPHOCYTES% (M) 4 % (0-0); SEG NEUT #M 8.8 10^3/ul (1.6-7.5); SEGMENTED NEUTROPHILS (M) % 74 % (39-77); SMUDGE%M 7 % (0-0)
[2018-09-27] MEDS: HEPARIN 5,000 UNIT/1 ML VIAL SC ×2 (13:53→22:57)
[2018-09-27] MEDS: SOD FERRIC GLUC COMPLX 125 MG in SOD CHLORIDE 0.9% 100 ML IVPB (16:23)
[2018-09-27] MEDS ORDERED: morphine LIQ (10 MG/5 ML) CUP PO (17:00)
[2018-09-27] MEDS: ATORVASTATIN 40 MG TAB PO (21:25)
[2018-09-27] MEDS: FAMOTIDINE 20 MG TAB PO (21:25)
[2018-09-28] MEDS: ALBUTEROL/IPRATROPIUM (NEB) 3 ML AMP HHN ×3 (01:32→10:53)
[2018-09-28 05:21] LABS: WHITE BLOOD COUNT 8.1 10^3/ul (4.8-10.8)
[2018-09-28 05:21] LABS: HEMOGLOBIN 7.6 g/dl (12.0-16.0); MEAN CORPUSCULAR HEMOGLOBIN 30.8 pg (29.0-33.0); MEAN CORPUSCULAR VOLUME 93.1 fl (82.0-101.0); MEAN PLATELET VOLUME 10.6 fl (7.4-10.4); PLATELET COUNT 173 10^3/UL (140-415); RED BLOOD COUNT 2.47 10^6/ul (4.20-5.40); RED CELL DISTRIBUTION WIDTH 16.1 % (11.5-14.5)
[2018-09-28 05:33] LABS: ADD MAN DIFF? YES; POSITIVE DIFF @See below
[2018-09-28 05:35] LABS: ANION GAP 5 (5-13); BLOOD UREA NITROGEN 24 mg/dl (7-20); CALCIUM 8.3 mg/dl (8.4-10.2); CARBON DIOXIDE 26 mmol/L (21-31); CHLORIDE 105 mmol/L (97-110); CREATININE 0.81 mg/dl (0.44-1.00); GLUCOSE 115 mg/dl (70-220); MAGNESIUM 1.9 mg/dl (1.7-2.5); POTASSIUM 4.7 mmol/L (3.5-5.1); SODIUM 136 mmol/L (135-144)
[2018-09-28] MEDS: OXYCODONE/ACETAMINOPHEN (5/325) TAB PO ×6 (05:38→20:25)
[2018-09-28] MEDS: PANTOPRAZOLE (EC) 40 MG TAB PO (05:38)
[2018-09-28] MEDS: LEVOFLOXACIN 250 MG TAB PO (05:38)
[2018-09-28 07:40] LABS: ANISOCYTOSIS 1+ (0-0); BAND NEUTROPHILS #M 0.1 10^3/ul (0.0-0.6); BAND NEUTROPHILS % (M) 2 % (0-4); BASOPHILS % (M) 1 % (0-2); BURR CELLS 1+ (0-0); EOSINOPHILS % (M) 1 % (0-7); ERYTHROBLAST% (NRBC) (M) 1 % (0-0); GIANT THROMBO% (M) 1 % (0-0); HYPOCHROMASIA 1+ (0-0); LYMPHOCYTES #M 1.3 10^3/ul (0.8-2.9); LYMPHOCYTES % (M) 17 % (15-51); MONOCYTE #M 0.7 10^3/ul (0.3-0.9); MONOCYTES % (M) 9 % (0-11); PLATELET ESTIMATE NORMAL; PLATELET MORPHOLOGY COMMENT @See below; POLYCHROMASIA 1+ (0-0); REACTIVE LYMPHOCYTES #M 0.2 10^3/ul (0.0-0.0); REACTIVE LYMPHOCYTES% (M) 3 % (0-0); SEG NEUT #M 5.4 10^3/ul (1.6-7.5); SEGMENTED NEUTROPHILS (M) % 67 % (39-77); SMUDGE%M 4 % (0-0)
[2018-09-28] MEDS: POTASSIUM CHLORIDE (SR) 20 MEQ TAB PO (09:02)
[2018-09-28] MEDS: GABAPENTIN 300 MG CAP PO ×3 (09:02→20:24)
[2018-09-28] MEDS: BENAZEPRIL 10 MG TAB PO ×2 (09:03→20:25)
[2018-09-28] MEDS: DOCUSATE SODIUM 100 MG CAP PO ×2 (09:03→20:25)
[2018-09-28] MEDS: METOPROLOL 25 MG TAB PO ×2 (09:04→20:24)
[2018-09-28] MEDS: LINACLOTIDE 145 MCG PO ×2 (09:04→17:50)
[2018-09-28] MEDS: [UNRECOGNIZED DRUG - OTHER] PO ×2 (09:04→17:50)
[2018-09-28] MEDS: LUBIPROSTONE 24 MCG CAP PO ×2 (09:04→20:24)
[2018-09-28] MEDS: HEPARIN 5,000 UNIT/1 ML VIAL SC (09:06)
[2018-09-28] MEDS: POLYETHYLENE GLYCOL 17 GM PACKET PO (09:07)
[2018-09-28 10:53] LABS: IMMEDIATE SPIN CROSSMATCH 1 1
[2018-09-28] MEDS: BUDESONIDE (NEB) 0.25 MG/2 ML AMP HHN (10:55)
[2018-09-28] MEDS: SOD FERRIC GLUC COMPLX 125 MG in SOD CHLORIDE 0.9% 100 ML IVPB (17:50)
[2018-09-28] MEDS: ATORVASTATIN 40 MG TAB PO (20:25)
[2018-09-28] MEDS: FAMOTIDINE 20 MG TAB PO (20:25)
[2018-09-29] MEDS: ALBUTEROL/IPRATROPIUM (NEB) 3 ML AMP HHN (02:53)
[2018-09-29 05:19] LABS: ADD MAN DIFF? NO
[2018-09-29 05:26] LABS: WHITE BLOOD COUNT 7.7 10^3/ul (4.8-10.8)
[2018-09-29 05:26] LABS: BASOPHILS % 0.4 % (0.0-2.0); EOSINOPHILS # 0.2 10^3/ul (0.0-0.5); EOSINOPHILS % 2.7 % (0.0-7.0); HEMATOCRIT 27.5 % (37.0-47.0); HEMOGLOBIN 9.1 g/dl (12.0-16.0); LYMPHOCYTES # 1.1 10^3/ul (0.8-2.9); LYMPHOCYTES % 14.4 % (15.0-51.0); MEAN CORPUSCULAR HEMOGLOBIN 31.3 pg (29.0-33.0); MEAN CORPUSCULAR HGB CONC 33.1 g/dl (32.0-37.0); MEAN CORPUSCULAR VOLUME 94.5 fl (82.0-101.0); MEAN PLATELET VOLUME 10.2 fl (7.4-10.4); MONOCYTE # 1.1 10^3/ul (0.3-0.9); MONOCYTES % 14.9 % (0.0-11.0); NEUTROPHIL # 4.9 10^3/ul (1.6-7.5); NEUTROPHILS % 63.8 % (39.0-77.0); PLATELET COUNT 200 10^3/UL (140-415); RED BLOOD COUNT 2.91 10^6/ul (4.20-5.40); RED CELL DISTRIBUTION WIDTH 15.8 % (11.5-14.5)
[2018-09-29] MEDS: PANTOPRAZOLE (EC) 40 MG TAB PO (05:52)
[2018-09-29] MEDS: LEVOFLOXACIN 250 MG TAB PO (05:52)
[2018-09-29] MEDS: [UNRECOGNIZED DRUG - OTHER] PO (07:25)
[2018-09-29] MEDS: LINACLOTIDE 145 MCG PO (07:25)
[2018-09-29] MEDS: DOCUSATE SODIUM 100 MG CAP PO (09:01)
[2018-09-29] MEDS: GABAPENTIN 300 MG CAP PO ×2 (09:01→13:55)
[2018-09-29] MEDS: LUBIPROSTONE 24 MCG CAP PO (09:01)
[2018-09-29] MEDS: POTASSIUM CHLORIDE (SR) 20 MEQ TAB PO (09:01)
[2018-09-29] MEDS: ASPIRIN 81 MG TAB PO (09:02)
[2018-09-29] MEDS: POLYETHYLENE GLYCOL 17 GM PACKET PO (09:03)
[2018-09-29] MEDS: BENAZEPRIL 10 MG TAB PO (09:03)
[2018-09-29] MEDS: METOPROLOL 25 MG TAB PO (09:03)
[2018-09-29] MEDS: OXYCODONE/ACETAMINOPHEN (5/325) TAB PO ×2 (11:01→16:19)
== END 2018-09-29 18:30 | DRG 480 ==
LOC: ICU 09-24 22:18 → E/R 09:35 → MS1 09-25 19:05
PROC: 0QSC04Z Reposition Left Lower Femur with Internal Fixation Device, Open Approach (ICD-10-PCS; principal; 2018-09-18 13:15)
PROC: 30233N1 Transfusion of Nonautologous Red Blood Cells into Peripheral Vein, Percutaneous Approach (ICD-10-PCS; 2018-09-18 13:15)
PROC: 5A1935Z Respiratory Ventilation, Less than 24 Consecutive Hours (ICD-10-PCS; 2018-09-18 13:15)
PROC: 0BH17EZ Insertion of Endotracheal Airway into Trachea, Via Natural or Artificial Opening (ICD-10-PCS; 2018-09-18 13:15)
DX: S72.452A Displaced supracondylar fracture without intracondylar extension of lower end of left femur, initial encounter for closed fracture (principal); J96.91 Respiratory failure, unspecified with hypoxia; N17.9 Acute kidney failure, unspecified; I50.32 Chronic diastolic (congestive) heart failure; I13.0 Hypertensive heart and chronic kidney disease with heart failure and stage 1 through stage 4 chronic kidney disease, or unspecified chronic kidney disease; D62 Acute posthemorrhagic anemia; E66.9 Obesity, unspecified; Z68.35 Body mass index [BMI] 35.0-35.9, adult; I11.0 Hypertensive heart disease with heart failure; E78.5 Hyperlipidemia, unspecified; K59.09 Other constipation; M19.90 Unspecified osteoarthritis, unspecified site; E55.9 Vitamin D deficiency, unspecified; F03.90 Unspecified dementia, unspecified severity, without behavioral disturbance, psychotic disturbance, mood disturbance, and anxiety; E11.22 Type 2 diabetes mellitus with diabetic chronic kidney disease; N18.9 Chronic kidney disease, unspecified; E87.5 Hyperkalemia; R33.9 Retention of urine, unspecified
CPT/HCPCS: 36415; 36430; 36600; 71045; 72170; 73030-RT; 73510; 73550; 73562; 76775; 80048; 80053; 80061; 81001; 82270; 82550; 82553; 82728; 82803; 83036; 83540; 83735; 84100; 84300; 84443; 84484; 85025; 85610; 85730; 86644; 86850; 86900; 86901; 86920; 87086; 89190; 90686; 93005; 93306; 93970; 94002; 94640; 94770; 96374; 96375; 96376; 97110; 97162; 97530; 99285-25